=== PATIENT | male | born 2000 | race Caucasian/White ===

== ENCOUNTER 2021-11-22 18:14 | Emergency (ER) | payer OTHER ==
[~2021-11-22] VITALS: Ht 175.3 cm; Wt 70.3 kg
[2021-11-22 18:18] VITALS: BP_SYST 122
--- NOTE | 2021-11-22 18:22 | NUR ---
Patient to ER bed 08 to gown for evaluation. Side rails up.
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
--- NOTE | 2021-11-22 18:28 | NUR ---
ER Dr. Bonilla at bedside examining patient.
--- NOTE | 2021-11-22 18:38 | NUR ---
Patient off unit to ct scan for ct head. accompanied by marketing project manager.
--- NOTE | 2021-11-22 18:43 | NUR ---
patient returned from ct scan. patien tolerated well.
--- NOTE | 2021-11-22 18:49 | NUR ---
EKG performed at BS by myself. Physician given copy of EKG for review.
--- NOTE | 2021-11-22 18:49 | NUR ---
Blood for labwork drawn by test fixture designer
--- NOTE | 2021-11-22 19:00 | NUR ---
eport given to ELIZ Cruz for continuation of care.
[2021-11-22 19:03] LABS: BASOPHILS % (AUTO) 0.3 % (0.0-2.0); EOSINOPHILS % (AUTO) 0.4 % (0.0-4.0); HEMATOCRIT 44.4 % (36-54); HEMOGLOBIN 14.9 g/dL (14.0-18.0); LYMPHOCYTES # (AUTO) 2.3 K/uL (1.0-5.5); LYMPHOCYTES % (AUTO) 19.4 % (20.5-51.5); MEAN CORPUSCULAR HEMOGLOBIN 27 pg (27-31); MEAN CORPUSCULAR HGB CONC 34 % (32-36); MEAN CORPUSCULAR VOLUME 82 fL (79.0-98.0); MONOCYTES # (AUTO) 1.1 K/uL (0.0-1.0); MONOCYTES % (AUTO) 9.5 % (1.7-9.3); NEUTROPHILS # (AUTO) 8.3 K/uL (1.8-7.7); NEUTROPHILS % (AUTO) 70.4 % (40.0-70.0); PLATELET COUNT (AUTO) 441 K/uL (130-430); RED BLOOD CELL COUNT(AUTO) 5.42 MIL/uL (4.2-6.2); RED CELL DISTRIBUTION WIDTH 13.7 % (9.0-15.0); WHITE BLOOD COUNT (AUTO) 11.9 K/uL (4.8-10.8)
[2021-11-22 19:11] LABS: CREATININE 0.96 mg/dL (0.55-1.30); POTASSIUM 4.2 mmol/L (3.5-5.1)
[2021-11-22 19:15] LABS: INR 0.9 (0.80-1.20); PROTHROMBIN TIME 9.8 SECS (9.5-12.5)
[2021-11-22 19:20] LABS: ALBUMIN 4.6 g/dL (3.4-4.8); TOTAL BILIRUBIN 0.2 mg/dL (0.0-1.0)
[2021-11-22] MEDS ORDERED: HYDR-3917 PO (20:05)
--- NOTE | 2021-11-22 20:20 | NUR ---
Patient given written and verbal discharge instructions and verbalizes understanding. ER MD discussed with patient the results and treatment provided. Patient in stable condition Rx of NORCO given. Patient educated on pain management and to follow up with PMD. Pain Scale 4 Opportunity for questions provided and answered.
[2021-11-22 20:21] VITALS: BP_SYST 127
== END 2021-11-22 20:21 | disposition home or self-care (01) ==
LOC: SED 18:14
DX: R51.9 Headache, unspecified (principal); R55 Syncope and collapse; Z79.899 Other long term (current) drug therapy; V49.49XA Driver injured in collision with other motor vehicles in traffic accident, initial encounter; Y93.89 Activity, other specified; Y92.89 Other specified places as the place of occurrence of the external cause; Y99.8 Other external cause status
CPT/HCPCS: 36415; 70450-TC; 71045; 76376; 80053; 82550; 83605; 84484; 85025; 85610-TC; 85730-TC; 93005; 99285